=== PATIENT | female | born 1995 | race African-American/Black ===

== ENCOUNTER 2017-02-07 00:11 | Emergency (ER) | payer BC ==
[~2017-02-07] VITALS: Ht 149.9 cm; Wt 43.1 kg
[2017-02-07] MEDS ORDERED: NOHOMEMEDICATIONS (00:42)
[2017-02-07 02:24] VITALS: BP 148/92
== END 2017-02-07 02:24 | disposition home or self-care (01) ==
LOC: ER 00:11
DX: S63.591A Other specified sprain of right wrist, initial encounter (principal); S80.01XA Contusion of right knee, initial encounter; V89.2XXA Person injured in unspecified motor-vehicle accident, traffic, initial encounter; Y93.I9 Activity, other involving external motion; Y92.89 Other specified places as the place of occurrence of the external cause; Y99.8 Other external cause status